=== PATIENT | female | born 1995 | race Caucasian/White ===

== ENCOUNTER 2017-11-28 10:11 | Inpatient (IN) | payer MEDICAID ==
[2017-11-28 11:22] LABS: ADD UMIC YES; UR ASCORBIC ACID NEGATIVE (NEGATIVE); UR BACTERIA FEW /HPF (NONE SEEN); UR BILIRUBIN (Dip) NEGATIVE (NEGATIVE); UR BLOOD (Dip) NEGATIVE (NEGATIVE); UR CLARITY SLIGHTLY CLOUDY (CLEAR); UR COLOR YELLOW (YELLOW); UR GLUCOSE (Dip) NEGATIVE (NEGATIVE); UR KETONES (Dip) NEGATIVE (NEGATIVE); UR LEUKOCYTE ESTERASE (Dip) 3+ Leu/ul (NEGATIVE); UR MUCUS FEW /HPF (NONE SEEN); UR NITRITE (Dip) NEGATIVE (NEGATIVE); UR RBC 5 /HPF (0-5); UR SPECIFIC GRAVITY (Dip) 1.016 (1.003-1.030); UR SQUAMOUS EPITHELIAL CELL FEW /HPF (FEW); UR TOTAL PROTEIN (Dip) NEGATIVE (NEGATIVE); UR UROBILINOGEN (Dip) NEGATIVE (NEGATIVE); UR WBC 7 /HPF (0-5)
[2017-11-28] MEDS ORDERED: LACTATED RINGER'S 1,000 ML IV (12:59)
[2017-11-28] MEDS ORDERED: MAGNESIUM SULFATE 20 GM/500 ML 500 ML IV (14:00)
[2017-11-28] MEDS: CEFTRIAXONE 2 GM/50 ML (PMX) 50 ML IVPB (14:05)
[2017-11-28] MEDS: BETAMET NA PHOS/AC(6 MG/ML) 5ML INJ IM (14:05)
[2017-11-28] MEDS: MAGNESIUM SULFATE 4 GM/100 ML 100 ML IV (14:07)
[2017-11-28] MEDS: SOD CHLORIDE 0.9% 1,000 ML IV (14:33)
[2017-11-28 15:24] LABS: ADD MAN DIFF? NO
[2017-11-28 15:27] LABS: WHITE BLOOD COUNT 11.7 10^3/ul (4.8-10.8)
[2017-11-28 15:27] LABS: BASOPHILS % 0.2 % (0.0-2.0); EOSINOPHILS # 0.1 10^3/ul (0.0-0.5); EOSINOPHILS % 0.7 % (0.0-7.0); HEMATOCRIT 34.4 % (37.0-47.0); HEMOGLOBIN 11.3 g/dl (12.0-16.0); LYMPHOCYTES # 2.3 10^3/ul (0.8-2.9); LYMPHOCYTES % 19.4 % (18.0-55.0); MEAN CORPUSCULAR HGB CONC 32.8 g/dl (32.0-37.0); MEAN CORPUSCULAR VOLUME 79.3 fl (72.0-104.0); MEAN PLATELET VOLUME 10.7 fl (7.4-10.4); MONOCYTE # 0.6 10^3/ul (0.3-0.9); NEUTROPHIL # 8.7 10^3/ul (1.6-7.5); NEUTROPHILS % 74.2 % (30.0-74.0); PLATELET COUNT 267 10^3/UL (140-415); RED BLOOD COUNT 4.34 10^6/ul (4.20-5.40); RED CELL DISTRIBUTION WIDTH 14.1 % (11.5-14.5)
[2017-11-28] MEDS: MAGNESIUM SULFATE 20 GM/500 ML 500 ML IV (15:29)
[2017-11-28 15:44] LABS: ALANINE AMINOTRANSFERASE 26 IU/L (13-69); ALBUMIN 4.1 g/dl (3.3-4.9); ALBUMIN/GLOBULIN RATIO 1.24; ALKALINE PHOSPHATASE 105 IU/L (42-121); ANION GAP 17 (8-16); ASPARTATE AMINO TRANSFERASE 18 IU/L (15-46); BLOOD UREA NITROGEN 6 mg/dl (7-20); CALCIUM 9.3 mg/dl (8.4-10.2); CARBON DIOXIDE 22 mmol/L (21-31); CHLORIDE 105 mmol/L (97-110); CREATININE 0.44 mg/dl (0.44-1.00); GLUCOSE 70 mg/dl (70-220); POTASSIUM 3.6 mmol/L (3.5-5.1); SODIUM 140 mmol/L (135-144); TOTAL PROTEIN 7.4 g/dl (6.1-8.1)
[2017-11-28 22:15] LABS: MAGNESIUM 4.5 mg/dl (1.7-2.5)
[2017-11-29] MEDS: ACETAMINOPHEN 325 MG TAB PO ×2 (00:19→12:30)
[2017-11-29] MEDS: SOD CHLORIDE 0.9% 1,000 ML IV ×2 (00:20→21:28)
[2017-11-29] MEDS: MAGNESIUM SULFATE 20 GM/500 ML 500 ML IV (01:18)
[2017-11-29 04:23] LABS: MAGNESIUM 4.9 mg/dl (1.7-2.5)
[2017-11-29] MEDS: PRENATAL VITAMIN PO (09:51)
[2017-11-29 12:09] LABS: MAGNESIUM 4.6 mg/dl (1.7-2.5)
[2017-11-29] MEDS: CEPHALEXIN 500 MG CAP PO ×3 (12:11→23:30)
[2017-11-29] MEDS: LACTATED RINGER'S 1,000 ML IV ×2 (12:17→21:28)
[2017-11-29] MEDS: AL HYDROX/MG HYDROX/SIMETH 30 ML CUP PO (12:43)
[2017-11-29] MEDS: ONDANSETRON 4 MG INJ IV (12:43)
[2017-11-29] MEDS: BETAMET NA PHOS/AC(6 MG/ML) 5ML INJ IM (14:27)
[2017-11-29] MEDS ORDERED: CEPHALEXIN 500 MG CAP PO (18:00)
[2017-11-30] MEDS: LACTATED RINGER'S 1,000 ML IV (05:27)
[2017-11-30] MEDS: CEPHALEXIN 500 MG CAP PO ×2 (05:31→13:04)
[2017-11-30] MEDS: SOD CHLORIDE 0.9% 1,000 ML IV (06:30)
[2017-11-30] MEDS: PRENATAL VITAMIN PO (10:24)
== END 2017-11-30 13:45 | disposition home or self-care (01) | DRG 780 ==
LOC: OBT 10:11 → L-D 10:12 → OBT 12:20 → L-D 12:20
DX: O47.02 False labor before 37 completed weeks of gestation, second trimester (principal); Z3A.24 24 weeks gestation of pregnancy
CPT/HCPCS: 76815; 76817; 80053; 81001; 82731; 83735; 85025; 87086

== ENCOUNTER 2017-12-16 05:11 | Outpatient (CLI) | payer MEDICAID ==
[2017-12-16] MEDS: HYDROCODONE/APAP (5/325) TAB PO (06:05)
[2017-12-16 06:28] LABS: ADD MAN DIFF? NO
[2017-12-16 06:31] LABS: WHITE BLOOD COUNT 12.4 10^3/ul (4.8-10.8)
[2017-12-16 06:31] LABS: BASOPHILS % 0.3 % (0.0-2.0); EOSINOPHILS # 0.1 10^3/ul (0.0-0.5); EOSINOPHILS % 0.7 % (0.0-7.0); HEMOGLOBIN 10.6 g/dl (12.0-16.0); LYMPHOCYTES # 2.3 10^3/ul (0.8-2.9); LYMPHOCYTES % 18.5 % (18.0-55.0); MEAN CORPUSCULAR HGB CONC 33.1 g/dl (32.0-37.0); MEAN CORPUSCULAR VOLUME 78.4 fl (72.0-104.0); MEAN PLATELET VOLUME 10.3 fl (7.4-10.4); MONOCYTE # 0.7 10^3/ul (0.3-0.9); MONOCYTES % 5.7 % (0.0-13.0); NEUTROPHIL # 9.2 10^3/ul (1.6-7.5); NEUTROPHILS % 73.8 % (30.0-74.0); PLATELET COUNT 241 10^3/UL (140-415); RED BLOOD COUNT 4.08 10^6/ul (4.20-5.40); RED CELL DISTRIBUTION WIDTH 13.2 % (11.5-14.5)
[2017-12-16 06:48] LABS: ALANINE AMINOTRANSFERASE 53 IU/L (13-69); ALBUMIN 3.5 g/dl (3.3-4.9); ALBUMIN/GLOBULIN RATIO 1.06; ALKALINE PHOSPHATASE 115 IU/L (42-121); ANION GAP 16 (8-16); ASPARTATE AMINO TRANSFERASE 97 IU/L (15-46); BILIRUBIN,INDIRECT 0.3 mg/dl (0-1.1); BILIRUBIN,TOTAL 0.3 mg/dl (0.2-1.3); BLOOD UREA NITROGEN 6 mg/dl (7-20); CALCIUM 8.8 mg/dl (8.4-10.2); CARBON DIOXIDE 22 mmol/L (21-31); CHLORIDE 106 mmol/L (97-110); CREATININE 0.45 mg/dl (0.44-1.00); GLUCOSE 87 mg/dl (70-220); POTASSIUM 3.7 mmol/L (3.5-5.1); SODIUM 140 mmol/L (135-144); TOTAL PROTEIN 6.8 g/dl (6.1-8.1)
== END 2017-12-16 08:46 | disposition home or self-care (01) ==
LOC: OBT 05:11 → L-D 05:12 → OBT 08:46
DX: O26.892 Other specified pregnancy related conditions, second trimester (principal); Z3A.26 26 weeks gestation of pregnancy; R10.13 Epigastric pain
CPT/HCPCS: 80053; 85025

== ENCOUNTER 2017-12-16 18:19 | Inpatient (IN) | payer MEDICAID ==
[2017-12-16 19:26] LABS: ADD MAN DIFF? NO
[2017-12-16 19:27] LABS: WHITE BLOOD COUNT 9.4 10^3/ul (4.8-10.8)
[2017-12-16 19:27] LABS: BASOPHILS % 0.3 % (0.0-2.0); EOSINOPHILS # 0.1 10^3/ul (0.0-0.5); EOSINOPHILS % 0.5 % (0.0-7.0); HEMATOCRIT 31.7 % (37.0-47.0); HEMOGLOBIN 10.7 g/dl (12.0-16.0); LYMPHOCYTES # 1.4 10^3/ul (0.8-2.9); LYMPHOCYTES % 15.1 % (18.0-55.0); MEAN CORPUSCULAR HEMOGLOBIN 26.2 pg (29.0-33.0); MEAN CORPUSCULAR HGB CONC 33.8 g/dl (32.0-37.0); MEAN CORPUSCULAR VOLUME 77.7 fl (72.0-104.0); MEAN PLATELET VOLUME 10.1 fl (7.4-10.4); MONOCYTE # 0.5 10^3/ul (0.3-0.9); MONOCYTES % 5.8 % (0.0-13.0); NEUTROPHIL # 7.3 10^3/ul (1.6-7.5); NEUTROPHILS % 77.9 % (30.0-74.0); PLATELET COUNT 232 10^3/UL (140-415); RED BLOOD COUNT 4.08 10^6/ul (4.20-5.40); RED CELL DISTRIBUTION WIDTH 13.2 % (11.5-14.5)
[2017-12-16] MEDS: HYDROCODONE/APAP (5/325) TAB PO (19:28)
[2017-12-16 19:48] LABS: ALANINE AMINOTRANSFERASE 139 IU/L (13-69); ALBUMIN 3.8 g/dl (3.3-4.9); ALBUMIN/GLOBULIN RATIO 1.15; ALKALINE PHOSPHATASE 146 IU/L (42-121); ANION GAP 15 (8-16); ASPARTATE AMINO TRANSFERASE 159 IU/L (15-46); BILIRUBIN,INDIRECT 0.4 mg/dl (0-1.1); BILIRUBIN,TOTAL 0.6 mg/dl (0.2-1.3); BLOOD UREA NITROGEN 7 mg/dl (7-20); CALCIUM 8.7 mg/dl (8.4-10.2); CARBON DIOXIDE 22 mmol/L (21-31); CHLORIDE 106 mmol/L (97-110); CREATININE 0.43 mg/dl (0.44-1.00); GLUCOSE 96 mg/dl (70-220); LIPASE 90 U/L (23-300); POTASSIUM 3.8 mmol/L (3.5-5.1); SODIUM 139 mmol/L (135-144); TOTAL PROTEIN 7.1 g/dl (6.1-8.1)
[2017-12-16] MEDS: LACTATED RINGER'S 1,000 ML IV* ×2 (20:16→21:00)
[2017-12-16 20:30] LABS: ADD UMIC YES; UR ASCORBIC ACID 40 mg/dL (NEGATIVE); UR BACTERIA FEW /HPF (NONE SEEN); UR BILIRUBIN (Dip) 2+ mg/dL (NEGATIVE); UR BLOOD (Dip) NEGATIVE (NEGATIVE); UR CLARITY CLEAR (CLEAR); UR COLOR AMBER (YELLOW); UR GLUCOSE (Dip) NEGATIVE (NEGATIVE); UR KETONES (Dip) 2+ mg/dL (NEGATIVE); UR LEUKOCYTE ESTERASE (Dip) TRACE Leu/ul (NEGATIVE); UR MUCUS FEW /HPF (NONE SEEN); UR NITRITE (Dip) NEGATIVE (NEGATIVE); UR RBC 0 /HPF (0-5); UR SPECIFIC GRAVITY (Dip) 1.028 (1.003-1.030); UR SQUAMOUS EPITHELIAL CELL FEW /HPF (FEW); UR TOTAL PROTEIN (Dip) 1+ mg/dl (NEGATIVE); UR UROBILINOGEN (Dip) 2+ mg/dL (NEGATIVE); UR WBC 4 /HPF (0-5)
[2017-12-16 22:24] LABS: HAAIG REFLEX REFLEX FILED
[2017-12-16 22:33] LABS: GAMMA GLUTAMYL TRANSPEPTIDASE 37 IU/L (0-50)
[2017-12-16 23:16] LABS: HEPATITIS B SURFACE ANTIGEN NEGATIVE (NEGATIVE)
[2017-12-16 23:32] LABS: HEPATITIS B CORE ANTIBODY NEGATIVE (NEGATIVE); HEPATITIS C VIRAL ANTIBODY NEGATIVE (NEGATIVE)
[2017-12-17] MEDS: FAMOTIDINE 20 MG TAB PO ×3 (00:46→23:13)
[2017-12-17] MEDS: LACTATED RINGER'S 1,000 ML IV ×2 (00:47→04:54)
[2017-12-17 07:26] LABS: ADD MAN DIFF? NO
[2017-12-17 07:27] LABS: WHITE BLOOD COUNT 7.1 10^3/ul (4.8-10.8)
[2017-12-17 07:27] LABS: BASOPHILS % 0.3 % (0.0-2.0); EOSINOPHILS # 0.1 10^3/ul (0.0-0.5); HEMATOCRIT 28.7 % (37.0-47.0); HEMOGLOBIN 9.5 g/dl (12.0-16.0); LYMPHOCYTES % 27.5 % (18.0-55.0); MEAN CORPUSCULAR HEMOGLOBIN 26.1 pg (29.0-33.0); MEAN CORPUSCULAR HGB CONC 33.1 g/dl (32.0-37.0); MEAN CORPUSCULAR VOLUME 78.8 fl (72.0-104.0); MEAN PLATELET VOLUME 10.4 fl (7.4-10.4); MONOCYTE # 0.6 10^3/ul (0.3-0.9); MONOCYTES % 7.7 % (0.0-13.0); NEUTROPHIL # 4.5 10^3/ul (1.6-7.5); NEUTROPHILS % 63.1 % (30.0-74.0); PLATELET COUNT 198 10^3/UL (140-415); RED BLOOD COUNT 3.64 10^6/ul (4.20-5.40); RED CELL DISTRIBUTION WIDTH 13.4 % (11.5-14.5)
[2017-12-17 08:15] LABS: ALANINE AMINOTRANSFERASE 129 IU/L (13-69); ALBUMIN 3.4 g/dl (3.3-4.9); ALBUMIN/GLOBULIN RATIO 1.17; ALKALINE PHOSPHATASE 143 IU/L (42-121); ANION GAP 11 (8-16); ASPARTATE AMINO TRANSFERASE 129 IU/L (15-46); BILIRUBIN,INDIRECT 0.5 mg/dl (0-1.1); BILIRUBIN,TOTAL 1.2 mg/dl (0.2-1.3); BLOOD UREA NITROGEN 2 mg/dl (7-20); CALCIUM 8.6 mg/dl (8.4-10.2); CARBON DIOXIDE 23 mmol/L (21-31); CHLORIDE 108 mmol/L (97-110); GLUCOSE 78 mg/dl (70-220); POTASSIUM 3.9 mmol/L (3.5-5.1); SODIUM 138 mmol/L (135-144); TOTAL PROTEIN 6.3 g/dl (6.1-8.1)
[2017-12-17] MEDS: DEXTROSE 5%-LR 1,000 ML IV ×2 (10:13→17:43)
[2017-12-17] MEDS: PRENATAL VITAMIN PO (10:14)
[2017-12-17] MEDS: HYDROCODONE/APAP (5/325) TAB PO (11:49)
[2017-12-17] MEDS: CEPHALEXIN 500 MG CAP PO (17:44)
[2017-12-18] MEDS: CEPHALEXIN 500 MG CAP PO ×4 (00:38→18:00)
[2017-12-18 01:20] LABS: COLLECTION PERIOD 24 hrs
[2017-12-18 01:28] LABS: ADD UMIC YES; UR ASCORBIC ACID NEGATIVE (NEGATIVE); UR BACTERIA FEW /HPF (NONE SEEN); UR BILIRUBIN (Dip) NEGATIVE (NEGATIVE); UR BLOOD (Dip) NEGATIVE (NEGATIVE); UR CLARITY CLEAR (CLEAR); UR COLOR YELLOW (YELLOW); UR GLUCOSE (Dip) NEGATIVE (NEGATIVE); UR KETONES (Dip) 1+ mg/dL (NEGATIVE); UR LEUKOCYTE ESTERASE (Dip) 2+ Leu/ul (NEGATIVE); UR NITRITE (Dip) NEGATIVE (NEGATIVE); UR RBC 2 /HPF (0-5); UR SPECIFIC GRAVITY (Dip) 1.005 (1.003-1.030); UR SQUAMOUS EPITHELIAL CELL FEW /HPF (FEW); UR TOTAL PROTEIN (Dip) NEGATIVE (NEGATIVE); UR UROBILINOGEN (Dip) NEGATIVE (NEGATIVE); UR WBC 9 /HPF (0-5)
[2017-12-18 02:48] LABS: COLLECTION PERIOD 24 hrs; CREATININE CLEARANCE 216.7 mls/min (84.0-162.0); CREATININE,URINE RANDOM 32.01 mg/dl (20-320); VOLUME 3900 ml/24hrs; VOLUME 3900 mls
[2017-12-18] MEDS: DEXTROSE 5%-LR 1,000 ML IV ×3 (03:23→21:34)
[2017-12-18] MEDS: FAMOTIDINE 20 MG TAB PO ×2 (08:39→21:33)
[2017-12-18] MEDS: PRENATAL VITAMIN PO (08:40)
[2017-12-18 10:49] LABS: ADD MAN DIFF? NO
[2017-12-18 10:52] LABS: BASOPHILS % 0.4 % (0.0-2.0); EOSINOPHILS # 0.1 10^3/ul (0.0-0.5); EOSINOPHILS % 0.9 % (0.0-7.0); HEMATOCRIT 31.1 % (37.0-47.0); HEMOGLOBIN 10.3 g/dl (12.0-16.0); LYMPHOCYTES # 2.1 10^3/ul (0.8-2.9); LYMPHOCYTES % 26.9 % (18.0-55.0); MEAN CORPUSCULAR HGB CONC 33.1 g/dl (32.0-37.0); MEAN CORPUSCULAR VOLUME 78.5 fl (72.0-104.0); MEAN PLATELET VOLUME 10.3 fl (7.4-10.4); MONOCYTE # 0.6 10^3/ul (0.3-0.9); MONOCYTES % 7.7 % (0.0-13.0); NEUTROPHIL # 4.9 10^3/ul (1.6-7.5); NEUTROPHILS % 63.3 % (30.0-74.0); PLATELET COUNT 208 10^3/UL (140-415); RED BLOOD COUNT 3.96 10^6/ul (4.20-5.40); RED CELL DISTRIBUTION WIDTH 13.5 % (11.5-14.5)
[2017-12-18 10:52] LABS: WHITE BLOOD COUNT 7.8 10^3/ul (4.8-10.8)
[2017-12-18 11:14] LABS: ANION GAP 15 (8-16); BLOOD UREA NITROGEN 3 mg/dl (7-20); CALCIUM 8.7 mg/dl (8.4-10.2); CARBON DIOXIDE 21 mmol/L (21-31); CHLORIDE 107 mmol/L (97-110); CREATININE 0.37 mg/dl (0.44-1.00); GLUCOSE 83 mg/dl (70-220); MAGNESIUM 1.7 mg/dl (1.7-2.5); PHOSPHORUS 3.8 mg/dl (2.5-4.9); POTASSIUM 3.5 mmol/L (3.5-5.1); SODIUM 139 mmol/L (135-144)
[2017-12-19] MEDS: CEPHALEXIN 500 MG CAP PO ×5 (00:02→23:57)
[2017-12-19] MEDS: DEXTROSE 5%-LR 1,000 ML IV ×2 (05:59→18:40)
[2017-12-19] MEDS: FAMOTIDINE 20 MG TAB PO ×2 (09:39→21:11)
[2017-12-19] MEDS: PRENATAL VITAMIN PO (09:40)
[2017-12-19 10:48] LABS: ADD MAN DIFF? NO
[2017-12-19 10:49] LABS: WHITE BLOOD COUNT 9.2 10^3/ul (4.8-10.8)
[2017-12-19 10:49] LABS: BASOPHILS % 0.3 % (0.0-2.0); EOSINOPHILS # 0.1 10^3/ul (0.0-0.5); EOSINOPHILS % 1.1 % (0.0-7.0); HEMATOCRIT 29.9 % (37.0-47.0); HEMOGLOBIN 9.8 g/dl (12.0-16.0); LYMPHOCYTES # 2.1 10^3/ul (0.8-2.9); LYMPHOCYTES % 22.5 % (18.0-55.0); MEAN CORPUSCULAR HEMOGLOBIN 25.8 pg (29.0-33.0); MEAN CORPUSCULAR HGB CONC 32.8 g/dl (32.0-37.0); MEAN CORPUSCULAR VOLUME 78.7 fl (72.0-104.0); MEAN PLATELET VOLUME 10.8 fl (7.4-10.4); MONOCYTE # 0.7 10^3/ul (0.3-0.9); MONOCYTES % 7.1 % (0.0-13.0); NEUTROPHIL # 6.3 10^3/ul (1.6-7.5); NEUTROPHILS % 68.3 % (30.0-74.0); PLATELET COUNT 197 10^3/UL (140-415); RED CELL DISTRIBUTION WIDTH 13.6 % (11.5-14.5)
[2017-12-19 11:11] LABS: ALANINE AMINOTRANSFERASE 77 IU/L (13-69); ALBUMIN/GLOBULIN RATIO 0.93; ALKALINE PHOSPHATASE 139 IU/L (42-121); ANION GAP 15 (8-16); ASPARTATE AMINO TRANSFERASE 31 IU/L (15-46); BILIRUBIN,INDIRECT 0.1 mg/dl (0-1.1); BILIRUBIN,TOTAL 0.1 mg/dl (0.2-1.3); BLOOD UREA NITROGEN 4 mg/dl (7-20); CALCIUM 8.4 mg/dl (8.4-10.2); CARBON DIOXIDE 22 mmol/L (21-31); CHLORIDE 107 mmol/L (97-110); CREATININE 0.45 mg/dl (0.44-1.00); GLUCOSE 90 mg/dl (70-220); SODIUM 141 mmol/L (135-144); TOTAL PROTEIN 6.2 g/dl (6.1-8.1)
[2017-12-19 11:12] LABS: MAGNESIUM 1.6 mg/dl (1.7-2.5)
[2017-12-19] MEDS: POTASSIUM CHLORIDE (SR) 20 MEQ TAB PO (15:45)
[2017-12-19] MEDS: MAGNESIUM SULFATE 2 GM/50 ML 50 ML IVPB (17:02)
[2017-12-19] MEDS: ONDANSETRON 4 MG INJ IV (18:37)
[2017-12-19] MEDS: HYDROmorphONE 0.5 MG/0.5 ML SYG IV (18:38)
[2017-12-19] MEDS: DIPHTH/TET/ACEL PERTUSS (ADULT) 0.5 ML VIAL IM* (19:00)
[2017-12-19] MEDS: HYDROCODONE/APAP (5/325) TAB PO (23:57)
[2017-12-20] MEDS: DEXTROSE 5%-LR 1,000 ML IV ×4 (01:30→14:03)
[2017-12-20] MEDS: CEPHALEXIN 500 MG CAP PO ×2 (05:49→12:58)
[2017-12-20] MEDS: HYDROCODONE/APAP (5/325) TAB PO (06:50)
[2017-12-20] MEDS: HYDROmorphONE 0.5 MG/0.5 ML SYG IV ×4 (07:04→23:15)
[2017-12-20] MEDS: FAMOTIDINE 20 MG TAB PO (08:44)
[2017-12-20] MEDS: PRENATAL VITAMIN PO (08:44)
[2017-12-20 10:51] LABS: ADD MAN DIFF? NO
[2017-12-20 10:53] LABS: WHITE BLOOD COUNT 10.2 10^3/ul (4.8-10.8)
[2017-12-20 10:53] LABS: BASOPHILS % 0.3 % (0.0-2.0); EOSINOPHILS # 0.1 10^3/ul (0.0-0.5); EOSINOPHILS % 0.7 % (0.0-7.0); HEMATOCRIT 32.7 % (37.0-47.0); HEMOGLOBIN 10.8 g/dl (12.0-16.0); LYMPHOCYTES # 1.3 10^3/ul (0.8-2.9); LYMPHOCYTES % 13.1 % (18.0-55.0); MEAN CORPUSCULAR HEMOGLOBIN 26.3 pg (29.0-33.0); MEAN CORPUSCULAR VOLUME 79.6 fl (72.0-104.0); MEAN PLATELET VOLUME 10.5 fl (7.4-10.4); MONOCYTE # 0.5 10^3/ul (0.3-0.9); MONOCYTES % 5.2 % (0.0-13.0); NEUTROPHIL # 8.2 10^3/ul (1.6-7.5); NEUTROPHILS % 80.2 % (30.0-74.0); PLATELET COUNT 229 10^3/UL (140-415); RED BLOOD COUNT 4.11 10^6/ul (4.20-5.40); RED CELL DISTRIBUTION WIDTH 13.9 % (11.5-14.5)
[2017-12-20 11:12] LABS: ALANINE AMINOTRANSFERASE 109 IU/L (13-69); ALBUMIN 3.4 g/dl (3.3-4.9); ALBUMIN/GLOBULIN RATIO 1.03; ALKALINE PHOSPHATASE 184 IU/L (42-121); ANION GAP 15 (8-16); ASPARTATE AMINO TRANSFERASE 83 IU/L (15-46); BILIRUBIN,INDIRECT 0.4 mg/dl (0-1.1); BILIRUBIN,TOTAL 0.4 mg/dl (0.2-1.3); BLOOD UREA NITROGEN 3 mg/dl (7-20); CALCIUM 8.6 mg/dl (8.4-10.2); CARBON DIOXIDE 22 mmol/L (21-31); CHLORIDE 106 mmol/L (97-110); GLUCOSE 83 mg/dl (70-220); POTASSIUM 3.6 mmol/L (3.5-5.1); SODIUM 139 mmol/L (135-144); TOTAL PROTEIN 6.7 g/dl (6.1-8.1)
[2017-12-20 11:20] LABS: PARTIAL THROMBOPLASTIN TIME 29.3 Sec (25.0-35.0); PROTIME 13.3 Sec (11.9-14.9)
[2017-12-20 12:53] LABS: AMYLASE 4904 U/L (11-123)
[2017-12-20 13:21] LABS: LIPASE 49375 U/L (23-300)
[2017-12-20 17:49] LABS: HEMOGLOBIN A1C 4.9 % (0-5.9)
[2017-12-20 17:50] LABS: CHOL/HDL RATIO 4.1 RATIO; HDL CHOLESTEROL 46 mg/dl (33-83); LDL CHOLESTEROL,CALCULATED 107 mg/dl; TRIGLYCERIDES 185 mg/dl (0-149)
[2017-12-20 17:50] LABS: CHOLESTEROL 190 mg/dl (100-200)
[2017-12-20] MEDS: DEXTROSE 5%-0.45% NACL 1,000 ML IV (20:16)
[2017-12-20] MEDS: FAMOTIDINE 20 MG INJ IV (21:34)
[2017-12-20] MEDS: CEFAZOLIN 1 GM/50 ML (PMX) 50 ML IVPB (21:49)
[2017-12-21] MEDS: DEXTROSE 5%-0.45% NACL 1,000 ML IV ×3 (05:09→20:30)
[2017-12-21] MEDS: CEFAZOLIN 1 GM/50 ML (PMX) 50 ML IVPB ×3 (05:48→21:38)
[2017-12-21] MEDS: FAMOTIDINE 20 MG INJ IV ×2 (08:07→21:47)
[2017-12-21] MEDS: HYDROmorphONE 0.5 MG/0.5 ML SYG IV ×3 (08:07→22:41)
[2017-12-21] MEDS: PRENATAL VITAMIN PO (09:00)
[2017-12-21 10:46] LABS: ADD MAN DIFF? NO
[2017-12-21 10:50] LABS: BASOPHILS % 0.2 % (0.0-2.0); EOSINOPHILS # 0.1 10^3/ul (0.0-0.5); EOSINOPHILS % 0.7 % (0.0-7.0); HEMOGLOBIN 9.9 g/dl (12.0-16.0); LYMPHOCYTES # 1.9 10^3/ul (0.8-2.9); LYMPHOCYTES % 20.7 % (18.0-55.0); MEAN CORPUSCULAR HEMOGLOBIN 25.9 pg (29.0-33.0); MEAN CORPUSCULAR VOLUME 78.5 fl (72.0-104.0); MEAN PLATELET VOLUME 11.1 fl (7.4-10.4); MONOCYTE # 0.5 10^3/ul (0.3-0.9); MONOCYTES % 5.4 % (0.0-13.0); NEUTROPHIL # 6.8 10^3/ul (1.6-7.5); NEUTROPHILS % 72.4 % (30.0-74.0); PLATELET COUNT 198 10^3/UL (140-415); RED BLOOD COUNT 3.82 10^6/ul (4.20-5.40)
[2017-12-21 10:50] LABS: WHITE BLOOD COUNT 9.3 10^3/ul (4.8-10.8)
[2017-12-21 11:08] LABS: LIPASE 1641 U/L (23-300)
[2017-12-21 11:10] LABS: ANION GAP 14 (8-16); BLOOD UREA NITROGEN 4 mg/dl (7-20); CALCIUM 8.5 mg/dl (8.4-10.2); CARBON DIOXIDE 21 mmol/L (21-31); CHLORIDE 106 mmol/L (97-110); CREATININE 0.46 mg/dl (0.44-1.00); GLUCOSE 85 mg/dl (70-220); MAGNESIUM 1.7 mg/dl (1.7-2.5); PHOSPHORUS 4.1 mg/dl (2.5-4.9); POTASSIUM 3.7 mmol/L (3.5-5.1); SODIUM 137 mmol/L (135-144)
[2017-12-21 11:13] LABS: ALANINE AMINOTRANSFERASE 93 IU/L (13-69); ALBUMIN 3.4 g/dl (3.3-4.9); ALKALINE PHOSPHATASE 181 IU/L (42-121); ASPARTATE AMINO TRANSFERASE 46 IU/L (15-46); BILIRUBIN,INDIRECT 0.3 mg/dl (0-1.1); BILIRUBIN,TOTAL 0.3 mg/dl (0.2-1.3); TOTAL PROTEIN 6.2 g/dl (6.1-8.1)
[2017-12-22] MEDS: DEXTROSE 5%-0.45% NACL 1,000 ML IV ×3 (00:06→16:16)
[2017-12-22] MEDS: HYDROmorphONE 0.5 MG/0.5 ML SYG IV ×4 (03:10→21:25)
[2017-12-22] MEDS: CEFAZOLIN 1 GM/50 ML (PMX) 50 ML IVPB ×3 (05:48→21:54)
[2017-12-22] MEDS: PRENATAL VITAMIN PO (07:48)
[2017-12-22] MEDS: FAMOTIDINE 20 MG INJ IV ×2 (08:40→21:05)
[2017-12-22 08:57] LABS: ADD MAN DIFF? NO
[2017-12-22 09:02] LABS: BASOPHILS % 0.4 % (0.0-2.0); EOSINOPHILS # 0.1 10^3/ul (0.0-0.5); EOSINOPHILS % 1.5 % (0.0-7.0); HEMATOCRIT 30.1 % (37.0-47.0); HEMOGLOBIN 9.9 g/dl (12.0-16.0); LYMPHOCYTES # 2.1 10^3/ul (0.8-2.9); LYMPHOCYTES % 27.2 % (18.0-55.0); MEAN CORPUSCULAR HEMOGLOBIN 25.8 pg (29.0-33.0); MEAN CORPUSCULAR HGB CONC 32.9 g/dl (32.0-37.0); MEAN CORPUSCULAR VOLUME 78.6 fl (72.0-104.0); MEAN PLATELET VOLUME 10.9 fl (7.4-10.4); MONOCYTE # 0.6 10^3/ul (0.3-0.9); NEUTROPHIL # 4.8 10^3/ul (1.6-7.5); NEUTROPHILS % 62.1 % (30.0-74.0); PLATELET COUNT 200 10^3/UL (140-415); RED BLOOD COUNT 3.83 10^6/ul (4.20-5.40); RED CELL DISTRIBUTION WIDTH 13.9 % (11.5-14.5)
[2017-12-22 09:02] LABS: WHITE BLOOD COUNT 7.8 10^3/ul (4.8-10.8)
[2017-12-22 09:29] LABS: ANION GAP 14 (8-16); BLOOD UREA NITROGEN 3 mg/dl (7-20); CALCIUM 8.6 mg/dl (8.4-10.2); CARBON DIOXIDE 21 mmol/L (21-31); CHLORIDE 107 mmol/L (97-110); CREATININE 0.39 mg/dl (0.44-1.00); GLUCOSE 83 mg/dl (70-220); MAGNESIUM 1.8 mg/dl (1.7-2.5); POTASSIUM 3.2 mmol/L (3.5-5.1); SODIUM 139 mmol/L (135-144)
[2017-12-22 09:29] LABS: LIPASE 425 U/L (23-300)
[2017-12-22] MEDS: POTASSIUM CHLORIDE (SR) 20 MEQ TAB PO (13:33)
[2017-12-23] MEDS: DEXTROSE 5%-0.45% NACL 1,000 ML IV ×3 (02:16→22:44)
[2017-12-23] MEDS: HYDROCODONE/APAP (5/325) TAB PO ×5 (02:16→22:08)
[2017-12-23] MEDS: CEFAZOLIN 1 GM/50 ML (PMX) 50 ML IVPB ×3 (05:44→22:07)
[2017-12-23] MEDS: FAMOTIDINE 20 MG INJ IV ×2 (08:55→20:53)
[2017-12-23] MEDS: PRENATAL VITAMIN PO (08:55)
[2017-12-23 10:09] LABS: ADD MAN DIFF? NO
[2017-12-23 10:14] LABS: WHITE BLOOD COUNT 8.9 10^3/ul (4.8-10.8)
[2017-12-23 10:14] LABS: BASOPHILS % 0.2 % (0.0-2.0); EOSINOPHILS # 0.1 10^3/ul (0.0-0.5); EOSINOPHILS % 1.6 % (0.0-7.0); LYMPHOCYTES # 2.1 10^3/ul (0.8-2.9); LYMPHOCYTES % 23.6 % (18.0-55.0); MEAN CORPUSCULAR HEMOGLOBIN 25.6 pg (29.0-33.0); MEAN CORPUSCULAR HGB CONC 32.3 g/dl (32.0-37.0); MEAN CORPUSCULAR VOLUME 79.3 fl (72.0-104.0); MEAN PLATELET VOLUME 10.6 fl (7.4-10.4); MONOCYTE # 0.6 10^3/ul (0.3-0.9); MONOCYTES % 6.5 % (0.0-13.0); NEUTROPHILS % 67.2 % (30.0-74.0); PLATELET COUNT 216 10^3/UL (140-415); RED BLOOD COUNT 3.91 10^6/ul (4.20-5.40)
[2017-12-23 10:29] LABS: ANION GAP 16 (8-16); BLOOD UREA NITROGEN 3 mg/dl (7-20); CALCIUM 8.5 mg/dl (8.4-10.2); CARBON DIOXIDE 21 mmol/L (21-31); CHLORIDE 108 mmol/L (97-110); CREATININE 0.38 mg/dl (0.44-1.00); GLUCOSE 74 mg/dl (70-220); MAGNESIUM 1.7 mg/dl (1.7-2.5); PHOSPHORUS 3.5 mg/dl (2.5-4.9); POTASSIUM 3.9 mmol/L (3.5-5.1); SODIUM 141 mmol/L (135-144)
[2017-12-23 10:47] LABS: LIPASE 356 U/L (23-300)
[2017-12-23] MEDS: metroNIDAZOLE 0.75% 70 GM VAG GEL VAG (13:00)
[2017-12-24] MEDS: HYDROCODONE/APAP (5/325) TAB PO (02:47)
[2017-12-24] MEDS: CEFAZOLIN 1 GM/50 ML (PMX) 50 ML IVPB (06:06)
[2017-12-24 06:36] LABS: ADD MAN DIFF? NO
[2017-12-24 06:43] LABS: BASOPHILS % 0.3 % (0.0-2.0); EOSINOPHILS # 0.2 10^3/ul (0.0-0.5); EOSINOPHILS % 1.7 % (0.0-7.0); HEMATOCRIT 30.9 % (37.0-47.0); HEMOGLOBIN 10.2 g/dl (12.0-16.0); LYMPHOCYTES # 2.5 10^3/ul (0.8-2.9); LYMPHOCYTES % 27.5 % (18.0-55.0); MEAN CORPUSCULAR HEMOGLOBIN 26.1 pg (29.0-33.0); MEAN PLATELET VOLUME 10.3 fl (7.4-10.4); MONOCYTE # 0.6 10^3/ul (0.3-0.9); MONOCYTES % 6.8 % (0.0-13.0); NEUTROPHIL # 5.6 10^3/ul (1.6-7.5); PLATELET COUNT 219 10^3/UL (140-415); RED BLOOD COUNT 3.91 10^6/ul (4.20-5.40); RED CELL DISTRIBUTION WIDTH 14.1 % (11.5-14.5)
[2017-12-24 06:43] LABS: WHITE BLOOD COUNT 8.9 10^3/ul (4.8-10.8)
[2017-12-24 07:02] LABS: ANION GAP 14 (8-16); BLOOD UREA NITROGEN 3 mg/dl (7-20); CALCIUM 8.6 mg/dl (8.4-10.2); CARBON DIOXIDE 21 mmol/L (21-31); CHLORIDE 109 mmol/L (97-110); CREATININE 0.43 mg/dl (0.44-1.00); GLUCOSE 84 mg/dl (70-220); MAGNESIUM 1.7 mg/dl (1.7-2.5); PHOSPHORUS 3.6 mg/dl (2.5-4.9); POTASSIUM 3.7 mmol/L (3.5-5.1); SODIUM 140 mmol/L (135-144)
[2017-12-24 07:04] LABS: LIPASE 344 U/L (23-300)
[2017-12-24] MEDS: DEXTROSE 5%-0.45% NACL 1,000 ML IV ×3 (07:28→22:16)
[2017-12-24] MEDS: PRENATAL VITAMIN PO (08:28)
[2017-12-24] MEDS: FAMOTIDINE 20 MG INJ IV ×2 (08:32→20:42)
[2017-12-24] MEDS: HYDROmorphONE 0.5 MG/0.5 ML SYG IV ×4 (08:59→23:45)
[2017-12-24] MEDS: metroNIDAZOLE 0.75% 70 GM VAG GEL VAG (12:20)
[2017-12-25] MEDS: HYDROmorphONE 0.5 MG/0.5 ML SYG IV ×4 (05:22→23:30)
[2017-12-25] MEDS: DEXTROSE 5%-0.45% NACL 1,000 ML IV (05:55)
[2017-12-25] MEDS ORDERED: BUPIVACAINE 0.25%/EPI (MDV) 50 ML VIAL INJ (07:00)
[2017-12-25 08:00] LABS: ADD MAN DIFF? NO
[2017-12-25 08:02] LABS: BASOPHILS % 0.3 % (0.0-2.0); EOSINOPHILS # 0.1 10^3/ul (0.0-0.5); EOSINOPHILS % 1.4 % (0.0-7.0); HEMATOCRIT 29.8 % (37.0-47.0); HEMOGLOBIN 10.1 g/dl (12.0-16.0); LYMPHOCYTES # 2.3 10^3/ul (0.8-2.9); MEAN CORPUSCULAR HEMOGLOBIN 26.8 pg (29.0-33.0); MEAN CORPUSCULAR HGB CONC 33.9 g/dl (32.0-37.0); MEAN PLATELET VOLUME 11.5 fl (7.4-10.4); MONOCYTE # 0.6 10^3/ul (0.3-0.9); MONOCYTES % 6.1 % (0.0-13.0); NEUTROPHIL # 6.4 10^3/ul (1.6-7.5); NEUTROPHILS % 67.5 % (30.0-74.0); PLATELET COUNT 182 10^3/UL (140-415); RED BLOOD COUNT 3.77 10^6/ul (4.20-5.40); RED CELL DISTRIBUTION WIDTH 13.7 % (11.5-14.5)
[2017-12-25 08:02] LABS: WHITE BLOOD COUNT 9.5 10^3/ul (4.8-10.8)
[2017-12-25 08:04] LABS: LIPASE 257 U/L (23-300)
[2017-12-25] MEDS: PRENATAL VITAMIN PO (08:06)
[2017-12-25 08:40] LABS: INR 0.97; PARTIAL THROMBOPLASTIN TIME 34.8 Sec (25.0-35.0)
[2017-12-25] MEDS: FAMOTIDINE 20 MG INJ IV ×2 (08:53→21:07)
[2017-12-25] MEDS: metroNIDAZOLE 0.75% 70 GM VAG GEL VAG ×2 (08:53→23:36)
[2017-12-25] MEDS ORDERED: ROPIVACAINE 0.5 % 30 ML VIAL ×2 (15:26→15:31)
[2017-12-25] MEDS ORDERED: FENTAnyl 50 MCG/ML VIAL ×2 (15:26→18:16)
[2017-12-25] MEDS ORDERED: PROPOFOL 20 ML (15:26)
[2017-12-25] MEDS ORDERED: ROCURONIUM 50 MG INJ (15:26)
[2017-12-25] MEDS ORDERED: LIDOCAINE 1%/EPI 30 ML INJ (15:53)
[2017-12-25] MEDS ORDERED: LIDOCAINE 1% (MPF) 30 ML INJ (15:54)
[2017-12-25] MEDS ORDERED: PHENYLephrine (100 MCG/ML) 5ML SYG (16:16)
[2017-12-25] MEDS: LIDOCAINE 1% (MPF) 30 ML INJ INJ (16:43)
[2017-12-25] MEDS: BUPIVACAINE 0.25%/EPI (SDV) 30 ML INJ INJ (16:43)
[2017-12-25] MEDS: SODIUM CHLORIDE 0.9% 1L IRRIG IRR (16:43)
[2017-12-25] MEDS ORDERED: FENTAnyl 50 MCG/ML VIAL IV (17:00)
[2017-12-25] MEDS ORDERED: EPHEDrine SULFATE 50 MG/5 ML SYG IV (17:00)
[2017-12-25] MEDS ORDERED: ONDANSETRON 4 MG INJ IV (17:00)
[2017-12-25] MEDS ORDERED: DEXAMETHASONE 4 MG/ML 1 ML INJ (17:16)
[2017-12-25] MEDS ORDERED: metroNIDAZOLE 500 MG/NS (PMX) 100 ML IVPB (17:16)
[2017-12-25] MEDS ORDERED: ACETAMINOPHEN 1000MG/100ML IV 100 ML (17:16)
[2017-12-25] MEDS ORDERED: METOCLOPRAMIDE 10 MG INJ (17:16)
[2017-12-25] MEDS ORDERED: SUGAMMADEX SODIUM 200 MG/2 ML VIAL IV (17:16)
[2017-12-25] MEDS ORDERED: ONDANSETRON 4 MG INJ (17:16)
[2017-12-25] MEDS ORDERED: CEFAZOLIN 1 GM INJ (17:16)
[2017-12-25] MEDS: FENTAnyl 50 MCG/ML VIAL IV ×2 (18:23)
[2017-12-25] MEDS: MEPERIDINE 25 MG INJ IV (19:28)
[2017-12-25] MEDS: MAGNESIUM SULFATE 4 GM/100 ML 100 ML IV (19:31)
[2017-12-25] MEDS: DIPHENHYDRAMINE 50 MG INJ IV (20:14)
[2017-12-25] MEDS: MAGNESIUM SULFATE 20 GM/500 ML 500 ML IV (20:20)
[2017-12-25 20:48] LABS: ADD UMIC NO; UR ASCORBIC ACID NEGATIVE (NEGATIVE); UR BILIRUBIN (Dip) NEGATIVE (NEGATIVE); UR BLOOD (Dip) NEGATIVE (NEGATIVE); UR CLARITY CLEAR (CLEAR); UR COLOR YELLOW (YELLOW); UR GLUCOSE (Dip) NEGATIVE (NEGATIVE); UR KETONES (Dip) 1+ mg/dL (NEGATIVE); UR LEUKOCYTE ESTERASE (Dip) NEGATIVE Leu/ul (NEGATIVE); UR NITRITE (Dip) NEGATIVE (NEGATIVE); UR TOTAL PROTEIN (Dip) NEGATIVE (NEGATIVE); UR UROBILINOGEN (Dip) 1+ mg/dL (NEGATIVE)
[2017-12-25] MEDS: DEXTROSE 5%-LR 1,000 ML IV (21:04)
[2017-12-26 01:12] LABS: MAGNESIUM 4.3 mg/dl (1.7-2.5)
[2017-12-26] MEDS: HYDROmorphONE 0.5 MG/0.5 ML SYG IV ×4 (03:47→20:49)
[2017-12-26] MEDS: ACETAMINOPHEN 500 MG TAB PO (05:21)
[2017-12-26] MEDS: MAGNESIUM SULFATE 20 GM/500 ML 500 ML IV ×2 (05:54)
[2017-12-26] MEDS: DEXTROSE 5%-LR 1,000 ML IV ×3 (06:31→16:28)
[2017-12-26] MEDS: DIPHENHYDRAMINE 50 MG INJ IV (06:40)
[2017-12-26 07:03] LABS: MAGNESIUM 4.3 mg/dl (1.7-2.5)
[2017-12-26] MEDS: FAMOTIDINE 20 MG INJ IV ×2 (09:09→20:49)
[2017-12-26 13:31] LABS: MAGNESIUM 3.8 mg/dl (1.7-2.5)
[2017-12-26] MEDS: BETAMET NA PHOS/AC(6 MG/ML) 5ML INJ IM (16:17)
[2017-12-26] MEDS: HYDROCODONE/APAP (5/325) TAB PO (16:24)
[2017-12-26 18:54] LABS: MAGNESIUM 3.7 mg/dl (1.7-2.5)
[2017-12-26] MEDS: metroNIDAZOLE 0.75% 70 GM VAG GEL VAG (20:50)
[2017-12-27] MEDS: DEXTROSE 5%-LR 1,000 ML IV (01:52)
[2017-12-27] MEDS: HYDROmorphONE 0.5 MG/0.5 ML SYG IV (01:54)
[2017-12-27] MEDS: OXYCODONE/ACETAMINOPHEN (5/325) TAB PO ×2 (05:45→09:40)
[2017-12-27] MEDS: FAMOTIDINE 20 MG INJ IV (09:39)
[2017-12-27] MEDS: PRENATAL VITAMIN PO (09:39)
[2017-12-27] MEDS: metroNIDAZOLE 0.75% 70 GM VAG GEL VAG ×2 (09:40→15:00)
[2017-12-27] MEDS: DOCUSATE SODIUM 100 MG CAP PO (12:46)
[2017-12-27] MEDS: ACETAMINOPHEN 500 MG TAB PO (14:43)
[2017-12-27] MEDS: BETAMET NA PHOS/AC(6 MG/ML) 5ML INJ IM (15:01)
[2017-12-27 18:03] LABS: ADD UMIC YES; UR ASCORBIC ACID NEGATIVE (NEGATIVE); UR BILIRUBIN (Dip) NEGATIVE (NEGATIVE); UR BLOOD (Dip) NEGATIVE (NEGATIVE); UR CLARITY CLEAR (CLEAR); UR COLOR YELLOW (YELLOW); UR GLUCOSE (Dip) NEGATIVE (NEGATIVE); UR KETONES (Dip) NEGATIVE (NEGATIVE); UR LEUKOCYTE ESTERASE (Dip) 2+ Leu/ul (NEGATIVE); UR MUCUS FEW /HPF (NONE SEEN); UR NITRITE (Dip) NEGATIVE (NEGATIVE); UR RBC 0 /HPF (0-5); UR SPECIFIC GRAVITY (Dip) 1.014 (1.003-1.030); UR TOTAL PROTEIN (Dip) NEGATIVE (NEGATIVE); UR UROBILINOGEN (Dip) 2+ mg/dL (NEGATIVE); UR WBC 2 /HPF (0-5)
== END 2017-12-27 17:37 | disposition home or self-care (01) | DRG 781 ==
LOC: PP1 12-26 21:51 → OBT 18:19 → L-D 12-25 17:45 → OBT 21:59 → PP1 22:00
PROVIDERS: Obstetrics & Gynecology
PROC: 0FT44ZZ Resection of Gallbladder, Percutaneous Endoscopic Approach (ICD-10-PCS; principal; 2017-12-25 16:00)
PROC: 0FT Hepatobiliary System and Pancreas, Resection (ICD-10-PCS; 2017-12-25 16:00)
DX: O99.612 Diseases of the digestive system complicating pregnancy, second trimester (principal); K85.10 Biliary acute pancreatitis without necrosis or infection; K80.70 Calculus of gallbladder and bile duct without cholecystitis without obstruction; O99.012 Anemia complicating pregnancy, second trimester; D50.9 Iron deficiency anemia, unspecified; O23.42 Unspecified infection of urinary tract in pregnancy, second trimester; O23.592 Infection of other part of genital tract in pregnancy, second trimester; N76.0 Acute vaginitis; Z3A.26 26 weeks gestation of pregnancy
CPT/HCPCS: 36415; 74181; 76705; 76815; 76817; 76818; 80048; 80053; 80061; 80076; 81001; 81003; 82150; 82575; 82977; 83036; 83690; 83735; 84100; 84156; 85025; 85610; 85730; 86704; 86709; 86803; 86850; 86900; 86901; 87086; 87340; 88304; 90715; 96360; 96361

== ENCOUNTER 2018-03-11 12:55 | Inpatient (IN) | payer MEDICAID ==
[2018-03-11] MEDS ORDERED: LIDOCAINE 1% (MPF) 30 ML INJ INJ (15:30)
[2018-03-11] MEDS ORDERED: METHYLERGONOVINE 0.2 MG INJ IM (15:30)
[2018-03-11] MEDS ORDERED: CARBOPROST 250 MCG INJ IM (15:30)
[2018-03-11] MEDS ORDERED: OXYTOCIN 30 UNITS/LR 500 ML IV (15:30)
[2018-03-11] MEDS ORDERED: BUTORPHANOL 1 MG INJ IV (15:30)
[2018-03-11] MEDS ORDERED: MISOPROSTOL 200 MCG TAB PR (15:30)
[2018-03-11 17:36] LABS: CANNABINOIDS Negative (NEGATIVE)
[2018-03-11 17:39] LABS: AMPHETAMINE/METHAMPHETAMINE Negative (NEGATIVE); BARBITURATES Negative (NEGATIVE); BENZODIAZEPINES Negative (NEGATIVE); COCAINE Negative (NEGATIVE); OPIATES Negative (NEGATIVE)
[2018-03-11 17:52] LABS: ADD MAN DIFF? NO
[2018-03-11 17:55] LABS: BASOPHILS % 0.3 % (0.0-2.0); EOSINOPHILS % 0.3 % (0.0-7.0); HEMATOCRIT 33.3 % (37.0-47.0); HEMOGLOBIN 10.2 g/dl (12.0-16.0); LYMPHOCYTES # 2.6 10^3/ul (0.8-2.9); LYMPHOCYTES % 19.6 % (18.0-55.0); MEAN CORPUSCULAR HEMOGLOBIN 22.3 pg (29.0-33.0); MEAN CORPUSCULAR HGB CONC 30.6 g/dl (32.0-37.0); MEAN CORPUSCULAR VOLUME 72.7 fl (72.0-104.0); MEAN PLATELET VOLUME 11.3 fl (7.4-10.4); MONOCYTE # 0.6 10^3/ul (0.3-0.9); MONOCYTES % 4.7 % (0.0-13.0); NEUTROPHIL # 9.7 10^3/ul (1.6-7.5); NEUTROPHILS % 74.6 % (30.0-74.0); PLATELET COUNT 230 10^3/UL (140-415); RED BLOOD COUNT 4.58 10^6/ul (4.20-5.40); RED CELL DISTRIBUTION WIDTH 14.5 % (11.5-14.5)
[2018-03-11] MEDS: LACTATED RINGER'S 1,000 ML IV (18:11)
[2018-03-11] MEDS: AMPICILLIN 2 GM/NS (PMX) 100 ML IV (18:13)
[2018-03-11 18:15] LABS: INR 0.96; PROTIME 12.9 Sec (11.9-14.9)
[2018-03-11 18:16] LABS: PARTIAL THROMBOPLASTIN TIME 28.8 Sec (25.0-35.0)
[2018-03-11 18:44] LABS: HEPATITIS B SURFACE ANTIGEN NEGATIVE (NEGATIVE)
[2018-03-11] MEDS: MISOPROSTOL 25 MCG CAPSULE PO (21:02)
[2018-03-11] MEDS: AMPICILLIN 1 GM/NS (PMX) 50 ML IV (22:00)
[2018-03-12] MEDS: LACTATED RINGER'S 1,000 ML IV ×2 (00:24→03:53)
[2018-03-12] MEDS: MISOPROSTOL 25 MCG CAPSULE PO ×3 (01:00→09:29)
[2018-03-12] MEDS: BUTORPHANOL 2 MG INJ IV (01:23)
[2018-03-12] MEDS: AMPICILLIN 1 GM/NS (PMX) 50 ML IV ×3 (02:01→09:28)
[2018-03-12] MEDS ORDERED: FENTAnyl 2MCG/ML-ROPIV 0.2% 100 ML (03:40)
[2018-03-12] MEDS: OXYTOCIN 30 UNITS/LR 500 ML IV ×3 (05:21→09:30)
[2018-03-12] MEDS ORDERED: MISOPROSTOL 200 MCG TAB PR (06:00)
[2018-03-12] MEDS ORDERED: DIBUCAINE 1% 30 GM OINT PR (06:00)
[2018-03-12] MEDS ORDERED: OXYTOCIN 30 UNITS/LR 500 ML IV (06:00)
[2018-03-12] MEDS ORDERED: CARBOPROST 250 MCG INJ IM (06:00)
[2018-03-12] MEDS ORDERED: HYDROCODONE/APAP (5/325) TAB PO (06:00)
[2018-03-12] MEDS ORDERED: METHYLERGONOVINE 0.2 MG INJ IM (06:00)
[2018-03-12] MEDS: LACTATED RINGER'S 1,000 ML IV* ×2 (09:29→13:52)
[2018-03-12] MEDS: IBUPROFEN 600 MG TAB PO ×4 (09:29→23:39)
[2018-03-12] MEDS: LANOLIN 7 GM TUBE TOP (09:41)
[2018-03-12] MEDS: BENZOCAINE 20% 56 ML SPRAY TOP (09:41)
[2018-03-12] MEDS: WITCH HAZEL/GLYCERIN PAD PR (09:41)
[2018-03-12] MEDS: HYDROCODONE/APAP (5/325) TAB PO ×2 (09:42→20:58)
[2018-03-12 15:31] LABS: RAPID PLASMA REAGIN NONREACTIVE (NR)
[2018-03-13] MEDS: IBUPROFEN 600 MG TAB PO ×4 (05:45→23:35)
[2018-03-13 08:17] LABS: ADD MAN DIFF? NO
[2018-03-13 08:20] LABS: BASOPHILS % 0.3 % (0.0-2.0); EOSINOPHILS # 0.1 10^3/ul (0.0-0.5); EOSINOPHILS % 0.7 % (0.0-7.0); HEMATOCRIT 29.7 % (37.0-47.0); LYMPHOCYTES # 3.1 10^3/ul (0.8-2.9); LYMPHOCYTES % 26.4 % (18.0-55.0); MEAN CORPUSCULAR HEMOGLOBIN 22.2 pg (29.0-33.0); MEAN CORPUSCULAR HGB CONC 30.3 g/dl (32.0-37.0); MEAN CORPUSCULAR VOLUME 73.2 fl (72.0-104.0); MEAN PLATELET VOLUME 11.8 fl (7.4-10.4); MONOCYTE # 0.7 10^3/ul (0.3-0.9); MONOCYTES % 5.5 % (0.0-13.0); NEUTROPHIL # 7.8 10^3/ul (1.6-7.5); NEUTROPHILS % 66.3 % (30.0-74.0); PLATELET COUNT 201 10^3/UL (140-415); RED BLOOD COUNT 4.06 10^6/ul (4.20-5.40); RED CELL DISTRIBUTION WIDTH 14.3 % (11.5-14.5)
[2018-03-13 08:20] LABS: WHITE BLOOD COUNT 11.8 10^3/ul (4.8-10.8)
[2018-03-13] MEDS: LIDOCAINE/MYLANTA 40 ML BTL PO (12:16)
[2018-03-13] MEDS: FAMOTIDINE 20 MG TAB PO ×2 (12:17→21:18)
[2018-03-13] MEDS: HYDROCODONE/APAP (5/325) TAB PO (21:15)
[2018-03-14] MEDS: IBUPROFEN 600 MG TAB PO ×2 (05:35→12:43)
[2018-03-14] MEDS: DIPHTH/TET/ACEL PERTUSS (ADULT) 0.5 ML VIAL IM* (09:00)
[2018-03-14] MEDS: MEASLES,MUMPS,RUBELLA VACCINE INJ SC* (09:00)
[2018-03-14] MEDS: VARICELLA VACCINE LIVE/PF 1,350 UNIT/0.5 ML ML SC* (09:00)
[2018-03-14] MEDS: FAMOTIDINE 20 MG TAB PO (11:01)
== END 2018-03-14 14:40 | disposition home or self-care (01) | DRG 775 ==
LOC: OBT 12:55 → PP1 03-12 07:42 → L-D 12:58 → OBT 15:00 → L-D 15:00
PROC: 10E0XZZ Delivery of Products of Conception, External Approach (ICD-10-PCS; principal; 2018-03-12)
PROC: 0UQMXZZ Repair Vulva, External Approach (ICD-10-PCS; 2018-03-12)
PROC: 3E033VJ Introduction of Other Hormone into Peripheral Vein, Percutaneous Approach (ICD-10-PCS; 2018-03-12)
DX: O70.0 First degree perineal laceration during delivery (principal); Z3A.39 39 weeks gestation of pregnancy; Z37.0 Single live birth
CPT/HCPCS: 62319; 76815; 76818; 80307; 85025; 85610; 85730; 86592; 86850; 86900; 86901; 87340